=== PATIENT | male | born 1990 | race Caucasian/White ===

== ENCOUNTER 2016-06-18 11:12 | Emergency (ER) | payer OTHER ==
[~2016-06-18] VITALS: Ht 175.3 cm; Wt 87.5 kg
[2016-06-18 11:21] VITALS: BP 127/82
[2016-06-18] MEDS ORDERED: SULF1TAB48 PO (11:27)
[2016-06-18] MEDS ORDERED: CEPH-570 PO (11:27)
[2016-06-18] MEDS ORDERED: LIDOCAINE /MPF 1% VIAL 5 ML VIAL ONE (12:19)
[2016-06-18] MEDS ORDERED: CEFTRIAXONE 1 G VIAL ONE (12:19)
[2016-06-18] MEDS ORDERED: LIDOCAINE 1% INJ 50 ML MDV IJ ONE (12:30)
[2016-06-18] MEDS ORDERED: CEFTRIAXONE 1 G VIAL IM ONE (12:30)
== END 2016-06-18 12:31 | disposition home or self-care (01) ==
LOC: ER 11:16
DX: L03.116 Cellulitis of left lower limb (principal); L03.114 Cellulitis of left upper limb; F17.200 Nicotine dependence, unspecified, uncomplicated
CPT/HCPCS: A4606; J0696; J3490; Z7610